=== PATIENT | female | born 1960 ===

== ENCOUNTER → 2018-12-15 | Outpatient (CLI) | payer BC ==
[2018-12-17 15:18] LABS: HPV 16 Negative (Negative); HPV 18 Negative (Negative); HPV OTHER HR TYPES Negative (Negative)
== END | disposition home or self-care (01) ==
LOC: LAB 18:20 → LAB SHORT 18:20
PROVIDERS: Family Medicine
DX: Z12.4 Encounter for screening for malignant neoplasm of cervix (principal)
CPT/HCPCS: 87624; 88175

== ENCOUNTER 2019-03-16 12:02 | Day surgery (SDC) | payer BC ==
[~2019-03-16] VITALS: Ht 170.2 cm; Wt 85.0 kg
[~2019-03-16 12:02] MED LIST: FURO20; IBUP800; NEBI10; POTA10T
[2019-03-16] MEDS ORDERED: MELO7.5 (12:25)
== END 2019-03-16 13:34 | disposition home or self-care (01) ==
LOC: ORSCSDS 12:02
PROVIDERS: Student in an Organized Health Care Education/Training Program
PROC: 0DJD8ZZ Inspection of Lower Intestinal Tract, Via Natural or Artificial Opening Endoscopic (ICD-10-PCS; principal; 2019-03-16 13:15)
DX: Z12.11 Encounter for screening for malignant neoplasm of colon (principal); Z80.0 Family history of malignant neoplasm of digestive organs; K57.30 Diverticulosis of large intestine without perforation or abscess without bleeding; K64.8 Other hemorrhoids; K64.4 Residual hemorrhoidal skin tags; I10 Essential (primary) hypertension; Z79.899 Other long term (current) drug therapy; G47.33 Obstructive sleep apnea (adult) (pediatric)
CPT/HCPCS: J2704; J7120

== ENCOUNTER 2023-05-21 09:12 | Day surgery (SDC) | payer OTHER ==
[2023-05-21] VITALS (9 sets, daily range): BP systolic 119–136; BP diastolic 70–94
[~2023-05-21] VITALS: Ht 170.2 cm; Wt 91.0 kg
[~2023-05-21 09:12] MED LIST changes: +ASPI81CH PO; +DULO60 PO; +LOSA50 PO; +MELO7.5
[2023-05-21] MEDS ORDERED: MULVITA PO (09:36)
--- NOTE | 2023-05-21 10:46 | NUR ---
PT ARRIVES BACK FROM [facility]. ALERT AND ORIENTED. SITTING UP IN BED. PT. VSS UPON ARRIVAL. PT. HAS TR BAND IN PLACE TO RIGHT RADIAL WITH 11 CC OF AIR IN PLACE. SOFT NO HEMATOMA NO OOZING AT THIS TIME. REFRESHMENTS PROVIDED, FOOD TRAY ORDERED.
--- NOTE | 2023-05-21 12:19 | NUR ---
LUNCH TRAY PROVIDED, PT SITTING UP IN BED EATING. TR BAND REMAINS UNCHANGED FROM PREVIOUS ASSESSMENT
--- NOTE | 2023-05-21 12:23 | NUR ---
TR BAND DEFLATION INTIATED.PT. VSS REMAIN STABLE AND SITE REMAINS UNCHANGED.
--- NOTE | 2023-05-21 12:33 | NUR ---
TR BAND IS DEFLATED AT THIS TIME, NO HEMATOMA NO OOZING AT THIS TIME.
--- NOTE | 2023-05-21 13:21 | NUR ---
PT VERBALIZE D/C INSTRUCTIONS. PT DRESSED R RADIAL SITE CLEAN, DRY INTACT. DOT CLOTH DRESSING PLACED. ARM BOARD AND SLING PLACED FOR PRECAUTION. IV DC CATHETER INTACT. PT WHEELED OUT AND ASSISTED INTO VEHICLE.
== END 2023-05-21 13:20 | disposition home or self-care (01) ==
LOC: MHTC 09:12
DX: I42.0 Dilated cardiomyopathy (principal); R07.9 Chest pain, unspecified; I10 Essential (primary) hypertension
CPT/HCPCS: 76937; 93454; 99152; C1769; C1887; C1894; J1644; J2250; J3010; J7030; J7050; Q9967